=== PATIENT | female | born 1945 | race Caucasian/White ===

== ENCOUNTER 2020-09-25 04:30 | Day surgery (SDC) | payer OTHER ==
[2020-09-24 13:30] VITALS: BMI 30.5
[2020-09-25] MEDS ORDERED: ACETAMINOPHEN 500 MG TABLET (FP) PO PRN (09:19)
[2020-09-25] MEDS ORDERED: LACTATED RINGERS SOLUTION 1,000 ML IV SCH (09:30)
[2020-09-25] MEDS ORDERED: MIDAZOLAM HCL 2 MG/2 ML SINGLE DOSE VIAL ONE (12:38)
[2020-09-25] MEDS ORDERED: PROPOFOL 20 ML ONE (12:38)
[2020-09-25] MEDS ORDERED: LIDOCAINE HCL/PF 2% SDV 5ML VIAL ONE (12:47)
[2020-09-25] MEDS ORDERED: SODIUM CHLORIDE 0.9% P/F 10 ML VIAL IJ ONE (12:47)
[2020-09-25] MEDS ORDERED: ceFAZolin SODIUM 1 GM VIAL ONE (12:47)
[2020-09-25] MEDS ORDERED: ceFAZolin SODIUM 1 GM VIAL IVPB ONE (12:54)
[2020-09-25] MEDS ORDERED: KETOROLAC TROMETHAMINE 30 MG/1 ML VIAL ONE (12:55)
[2020-09-25 15:30] VITALS: BP 155/67; PULSE 60; TEMP 98.8
== END 2020-09-25 15:50 | disposition home or self-care (01) ==
LOC: JASU-SURG 04:30
PROVIDERS: ATTEND Urology
PROC: 0TF4XZZ Fragmentation in Left Kidney Pelvis, External Approach (ICD-10-PCS; principal; 2020-09-25 11:15)
DX: N20.0 Calculus of kidney (principal); R31.29 Other microscopic hematuria
CPT/HCPCS: 82962